=== PATIENT | male | born 1995 | race Caucasian/White ===

== ENCOUNTER 2019-09-22 14:40 | Emergency (ER) | payer MEDICAID ==
[~2019-09-22] VITALS: Ht 177.8 cm; Wt 82.0 kg
[2019-09-22 14:48] VITALS: BP 136/84
[2019-09-22] MEDS ORDERED: KETOROLAC 30MG/ML VIAL IM ONE (15:30)
== END 2019-09-22 17:08 | disposition left against medical advice (07) ==
LOC: ER 14:40
DX: S82.52XA Displaced fracture of medial malleolus of left tibia, initial encounter for closed fracture (principal); Y93.39 Activity, other involving climbing, rappelling and jumping off; Y93.89 Activity, other specified; Y92.89 Other specified places as the place of occurrence of the external cause; Y99.8 Other external cause status
CPT/HCPCS: 73610; 96372; 99283; J1885